=== PATIENT | male | born 1960 | race Caucasian/White ===

== ENCOUNTER 2016-07-04 09:44 | Inpatient (IN) | payer OTHER, MEDICAID ==
[~2016-07-04] VITALS: Ht 170.2 cm; Wt 68.9 kg
[~2016-07-04 09:44] MED LIST: ACIDOPHILUS1 CA1 PO; CALCIUM CARBONA PO; FERROUS SULFAT325 MG PO; FOLIC ACID5 MG PO; IMODIUM2 MG PO; MAPAP325 MG PO; MEGESTROL AC PO; PROTONIX40 MG PO; VITAMIN B-121000 MCG SL
[2016-07-04] MEDS ORDERED: NACL 0.9% 1,000 ML IV SCH (09:49)
[2016-07-04] MEDS ORDERED: ONDANSETRON 4 MG/2 ML VIAL IVP ONE (09:50)
--- NOTE | 2016-07-04 09:52 | NUR ---
Patient taken from ED lobby to XRAY by tech via personal wheelchair.
[2016-07-04 10:06] VITALS: BP 79/50
[2016-07-04] MEDS ORDERED: GOOD SENSE OMEP20 MG PO (10:11)
--- NOTE | 2016-07-04 10:44 | NUR ---
Patient transferred to bed 3 via wheelchair by tech, accompanied by family. RN evaluating patient at bedside.
--- NOTE | 2016-07-04 10:49 | NUR ---
Dr. Forbes evaluating patient at bedside.
--- NOTE | 2016-07-04 10:50 | NUR ---
PATIENT BIB EMS PRESENTS TO ED WITH C/O GEN WEAKNESS AND LETHARGY X1 DAY; DENIES N/V/D; SKIN IS PINK/WARM/DRY; AAOX4 WITH EVEN AND STEADY GAIT; LUNGS CLEAR BL; HR EVEN AND REGULAR; PT DENIES ANY FEVER, CP, SOB, OR COUGH AT THIS TIME; PATIENT STATES PAIN OF 0/10 AT THIS TIME; VSS; PATIENT POSITIONED FOR COMFORT; HOB ELEVATED; BEDRAILS UP X2; BED DOWN. ER MD MADE AWARE OF PT STATUS.
[2016-07-04] MEDS ORDERED: ALBUTEROL 0.083% 2.5 MG/3 ML NEBU INH ONE (10:55)
[2016-07-04] MEDS ORDERED: IPRATROPIUM 0.02% 0.5 MG/2.5 ML NEBU INH ONE (10:55)
[2016-07-04] MEDS ORDERED: NACL 0.9% 1,000 ML IV ONE (13:20)
[2016-07-04] MEDS: NACL 0.9% 1,000 ML IV SCH ×2 (13:22→21:03)
[2016-07-04] MEDS ORDERED: VANCOMYCIN PER PHARMACY MC PRN ×2 (13:25→13:55)
[2016-07-04] MEDS ORDERED: ALBUTEROL SULFATE/IPRATROPIU 3 ML SOL IH PRN (13:35)
[2016-07-04] MEDS ORDERED: cefTRIAXone 1,000 MG VIAL ONE (13:39)
--- NOTE | 2016-07-04 14:25 | NUR ---
Patient will be admitted to care of DR SHUKLA. Admited to ICU. Will go to room ICU5. Belongings list completed. Report to KATIA HOYOS.
[2016-07-04 14:40] VITALS: BP 117/67
--- NOTE | 2016-07-04 14:40 | NUR ---
ADMITTED PT FROM ER [facility], PT OPENS EYES BUT DOES NOT FOLLOW COMMANDS. NON VERBAL. BEDSIDE MONITOR SHOWS SR AT THIS TIME. PT ON O2 NC 2L/MIN, NO S/S OF RESPIRATORY DISTRESS NOTED. ABDOMEN SOFT, IV TO RIGHT FA #20 RUNNING NS , SITE INTACT AND PATENT. BUE AND BLE CONTRACTED. SKIN NON INTACT ( SEE WOUND ASSESSMENT), CALL LIGHT IN REACH, HOB ELEVATED 30 DEGREES WITH LOW BED POSITION, SIDE RAILS UP X2. NO FEVER.WILL CONTINUE TO MONITOR.
[2016-07-04] MEDS: VANCOMYCIN 500 MG in DEXTROSE 5% 100 ML IV SCH (15:32)
[2016-07-04 16:00] VITALS: BP 122/71
--- NOTE | 2016-07-04 16:05 | NUR ---
PT RESTING IN BED.NO S/S OF RESPIRATORY DISTRESS NOTED. WILL CONTINUE TO MONITOR.
--- NOTE | 2016-07-04 17:15 | NUR ---
PT'S MOTHER PRESENT AT BEDSIDE, QUESTIONS ANSWERED.
[2016-07-04 18:00] VITALS: BP 91/52
[2016-07-04] MEDS ORDERED: PIPERACILLIN/TAZOBACTAM 3.375 GM in DEXTROSE 5% 50 ML IV SCH (18:00)
--- NOTE | 2016-07-04 18:00 | NUR ---
DR. SHUKLA IN TO SEE PT. UPDATED PT'S CONDITION.
[2016-07-04] MEDS ORDERED: ONDANSETRON 4 MG/2 ML VIAL IVP PRN (18:10)
[2016-07-04] MEDS ORDERED: HYDROcodone/APAP 5/325 MG 1 TAB TAB PO PRN (18:10)
[2016-07-04] MEDS ORDERED: MORPHINE SULFATE 4 MG/ML SYR IVP PRN (18:10)
[2016-07-04] MEDS ORDERED: ALBUTEROL 0.083% 2.5 MG/3 ML NEBU IH PRN (18:10)
[2016-07-04] MEDS ORDERED: ACETAMINOPHEN 325 MG TAB PO PRN (18:15)
[2016-07-04] MEDS: PIPER/TAZO 3.375GM/D5W PREMIX 50 ML IV SCH ×2 (18:37→23:42)
[2016-07-04] MEDS ORDERED: ALBUTEROL SULFATE/IPRATROPIU 3 ML SOL IH SCH (19:00)
--- NOTE | 2016-07-04 19:05 | NUR ---
REPORT GIVEN TO MEME MONTALVO. BP 114/79. HR 73. NO SOB.
--- NOTE | 2016-07-04 19:40 | NUR ---
RECEIVED REPORT FROM SOHA MONTALVO. PATIENT IS AWAKE AND RESTING IN BED. NO SIGNS OF DISTRESS OR SHORTNESS OF BREATH NOTED. PATIENT IS RECEIVING OXYGEN THERAPY AT 2LPM VIA NASAL CANNULA. BREATH SOUNDS ARE CLEAR AND BOWEL SOUNDS ARE ACTIVE. THERE IS A #20 IN THE RIGHT FOREARM WRAPPED WITH KERLIX WRAP RECEIVING NORMAL SALINE AT 75 ML/HR. SITE IS DRY, INTACT, AND PATENT. THERE IS A SKIN TEAR NOTED ON THE LEFT CHEST, BLANCHABLE REDNESS ON THE RIGHT HIP, AND THE SMALLEST RIGHT TOE IS NON-BLANCHABLE. VITALS ARE WNL WITH NO COMPLAINTS OF PAIN OR DISCOMFORT AT THIS TIME. SAFETY MEASURES ENFORCED, WITH CALL LIGHT WITHIN REACH. WILL CONTINUE TO MONITOR.
[2016-07-04 20:00] VITALS: BP 141/52
--- NOTE | 2016-07-04 20:15 | NUR ---
RESPIRATORY THERAPIST GRICELDA AT BEDSIDE.
--- NOTE | 2016-07-04 21:00 | NUR ---
PERINEAL CARE PROVIDED. PATIENT REPOSITIONED FOR COMFORT. NO SIGNS OF SOB NOTED. HOB AT 30 DEGREES WITH BED IN LOW POSITION. CALL LIGHT WITHIN REACH. CONTINUE TO MONITOR PATIENT.
[2016-07-04 22:00] VITALS: BP 105/60
--- NOTE | 2016-07-04 22:16 | NUR ---
PATIENT SLEEPING IN BED. BREATHING IS EVEN AND UNLABORED. HOB AT 30 DEGREES WITH BED IN LOW POSITION. CALL LIGHT WITHIN REACH. CONTINUE TO MONITOR PATIENT.
--- NOTE | 2016-07-04 23:09 | NUR ---
PATIENT OFF UNIT FOR CT SCAN WITH CHARGE NURSE ROSALIE RN AND RAD TECHNICIANS.
--- NOTE | 2016-07-04 23:39 | NUR ---
PATIENT BACK FROM PROCEDURE AND IN UNIT. NO SIGNS OF DISTRESS OR SOB NOTED. CONTINUE TO MONITOR.
[2016-07-05] VITALS (12 sets, daily range): BP systolic 93–138; BP diastolic 47–92
--- NOTE | 2016-07-05 00:34 | NUR ---
PATIENT SLEEPING IN BED WITH NO SIGNS OF SOB OR DISTRESS NOTED. HOB AT 30 DEGREES WITH BED IN LOW POSITION. CALL LIGHT WITHIN REACH. CONTINUE TO MONITOR PATIENT.
[2016-07-05] MEDS: VANCOMYCIN 500 MG in DEXTROSE 5% 100 ML IV SCH ×2 (02:20→14:13)
--- NOTE | 2016-07-05 03:35 | NUR ---
PATIENT ASLEEP IN BED WITH NO SIGNS OF DISTRESS OR SHORTNESS OF BREATH. VITALS ARE STABLE. CONTINUE TO MONITOR.
--- NOTE | 2016-07-05 05:13 | NUR ---
INSPECTOR ADVANCED COMPOSITE AT BEDSIDE FOR SCHEDULED BLOOD DRAWS.
--- NOTE | 2016-07-05 05:38 | NUR ---
MORNING CARE RENDERED. BED BATH AND PERINEAL CARE PROVIDED. ORAL CARE RENDERED. PATIENT REPOSITIONED FOR TO OFFLOAD PRESSURE AREAS. HOB AT 30 DEGREES WITH BED IN LOW POSITION. CALL LIGHT WITHIN REACH. CONTINUE TO MONITOR PATIENT.
[2016-07-05] MEDS: PIPER/TAZO 3.375GM/D5W PREMIX 50 ML IV SCH ×4 (05:40→23:05)
--- NOTE | 2016-07-05 06:37 | NUR ---
PATIENT SLEEPING IN BED WITH NO S/S OF SOB OR DISCOMFORT NOTED. HOB AT 30 DEGREES WITH BED IN LOW POSITION. CALL LIGHT WITHIN REACH. CONTINUE TO MONITOR.
--- NOTE | 2016-07-05 07:03 | NUR ---
PATIENT IN STABLE CONDITION. ALL PATIENT'S NEEDS ATTENDED TO DURING SHIFT. ENDORSED CONTINUITY OF CARE TO SOHA MONTALVO.
--- NOTE | 2016-07-05 07:30 | NUR ---
RECEIVED REPORT FROM MEME MONTALVO. PT AWAKE AT THIS TIME, DOES NOT FOLLOW COMMANDS. ON O2 NC 2L/MIN, NO S/S OF RESPIRATORY DISTRESS NOTED. ABDOMEN SOFT WITH ACTIVE BOWEL SOUND. IV TO RIGHT FA #20 RUNNING NS AT 75 ML/HR, SITE INTACT AND PATENT. SKIN NON INTACT ( SEE WOUND ASSESSMENT). HOB ELEVATED 30 DEGREES WITH LOW BED POSITION, CALL LIGHT IN REACH. ORAL CARE GIVEN, WILL CONTINUE TO MONITOR.
[2016-07-05] MEDS: ENOXAPARIN 40 MG/0.4 ML SYR SUBQ SCH (08:52)
--- NOTE | 2016-07-05 10:00 | NUR ---
PT HAD MODERATE AMOUNT OF URINE OUTPUT, CLEANED PT. TURNED AND REPOSITIONED PT. WILL CONTINUE TO MONITOR.
[2016-07-05] MEDS ORDERED: PROBIOTIC SCREEN 1 EA MISC MC PRN (11:30)
[2016-07-05] MEDS ORDERED: LACTOBACILLUS RHAMNOSUS GG 1 EACH CAP PO SCH (12:00)
--- NOTE | 2016-07-05 12:30 | NUR ---
FEED PT, PT HAD 40% OF LUNCH TRAY.
--- NOTE | 2016-07-05 13:00 | NUR ---
DR. SHUKLA CALLED AND NOTIFIED OF LABS AND LOW MAG. GAVE ORDERS.
[2016-07-05] MEDS ORDERED: MAG SULF 2000 MG/WATER PREMIX 50 ML IV SCH (13:30)
[2016-07-05] MEDS ORDERED: POTASSIUM CHLORIDE 20% 40 MEQ/15 ML UDC PO SCH (13:30)
[2016-07-05] MEDS: NACL 0.9% 1,000 ML IV SCH (14:08)
--- NOTE | 2016-07-05 15:36 | NUR ---
URINE STAIN NOTED ON PAD, CLEANED PT. BED BATH GIVEN, GOWN CHANGED.
--- NOTE | 2016-07-05 16:30 | NUR ---
DR. SHUKLA IN TO SEE PT. MADE HIM AWARE PT HAS SB.
--- NOTE | 2016-07-05 16:47 | NUR ---
RIGHT HIP CULTURE DONE, SEND TO LAB.
--- NOTE | 2016-07-05 17:17 | NUR ---
PT'S FAMILY CALLED IN, UPDATED PT BP 105/58. HR 64. O2 SAT 100%.
--- NOTE | 2016-07-05 17:51 | NUR ---
DR. LUTHER CALLED RE: CONSULT. UPDATED ON PT'S CONDITION.
--- NOTE | 2016-07-05 18:04 | NUR ---
FEED PT DINNER, PT HAD 100% DINNER TRAY.
--- NOTE | 2016-07-05 18:58 | NUR ---
PT RESTING IN BED, NO S/S OF RESPIRATORY DISTRESS NOTED. HR 74, O2 SAT 96%, BP 112/68.
--- NOTE | 2016-07-05 19:27 | NUR ---
RECEIVED REPORT FROM SOHA MONTALVO. PATIENT IS SLEEPING IN BED. NO SIGNS OF DISTRESS OR SHORTNESS OF BREATH NOTED. BREATH SOUNDS ARE CLEAR UPON AUSCULTATION AND BOWEL SOUNDS ARE ACTIVE. PATIENT IS RECEIVING OXYGEN THERAPY AT 2LPM VIA NASAL CANNULA. THERE IS A #20 IN THE RIGHT FOREARM WRAPPED WITH KERLIX WRAP RECEIVING NORMAL SALINE AT 75 ML/HR. SITE IS DRY, INTACT, AND PATENT. THERE IS A SKIN TEAR NOTED ON THE LEFT CHEST COVERED WITH A COMPOSITE DRESSING, SMALL WOUND WITH BLANCHABLE REDNESS ON THE RIGHT HIP COVERED WITH A COMPOSITE DRESSING, AND THE SMALLEST RIGHT TOE IS NON-BLANCHABLE. VITALS ARE WNL WITH NO COMPLAINTS OF PAIN OR DISCOMFORT AT THIS TIME. SAFETY MEASURES ENFORCED, WITH CALL LIGHT WITHIN REACH. WILL CONTINUE TO MONITOR.
--- NOTE | 2016-07-05 20:26 | NUR ---
PERINEAL CARE PROVIDED. PATIENT REPOSITIONED FOR COMFORT. ORAL CARE RENDERED. NO SIGNS OF SOB OR DISTRESS NOTED. HOB AT 30 DEGREES WITH BED IN LOW POSITION. WILL CONTINUE TO MONITOR PATIENT.
--- NOTE | 2016-07-05 21:00 | NUR ---
RESPIRATORY THERAPIST ZACH AT BEDSIDE TO DO PULSE OX CHECK. PATIENT IS SATURATING AT 100% ON WITH NASAL CANNULA AT 2LPM. CONTINUE TO MONITOR PATIENT.
--- NOTE | 2016-07-05 21:23 | NUR ---
DR. LUTHER AT BEDSIDE. PROVIDED PATIENT'S STATUS WITH MD. NO NEW ORDERS GIVEN AT THIS TIME. CONTINUE TO MONITOR.
[2016-07-06] VITALS (9 sets, daily range): BP systolic 93–131; BP diastolic 32–69
--- NOTE | 2016-07-06 00:33 | NUR ---
PATIENT VOIDED MODERATE AMOUNT ON PAD. PERINEAL CARE PROVIDED. PATIENT REPOSITIONED FOR COMFORT. HOB AT 30 DEGREES WITH BED IN LOW POSITION. CONTINUE TO MONITOR PATIENT.
--- NOTE | 2016-07-06 02:30 | NUR ---
PATIENT SLEEPING IN BED. BREATHING IS EVEN AND UNLABORED. VITALS ARE STABLE. WILL CONTINUE TO MONITOR PATIENT.
[2016-07-06] MEDS: VANCOMYCIN 500 MG in DEXTROSE 5% 100 ML IV SCH (02:51)
--- NOTE | 2016-07-06 05:01 | NUR ---
MORNING CARE RENDERED. BED BATH PROVIDED. PATIENT'S GOWN AND LINENS CHANGED. REPOSITIONED TO OFFLOAD PRESSURE AREAS. ORAL CARE RENDERED. NO SIGNS OF SOB OR DISTRESS NOTED. HOB AT 30 DEGREES WITH BED IN LOW POSITION. CALL LIGHT WITHIN REACH. WILL CONTINUE TO MONITOR PATIENT.
[2016-07-06] MEDS: NACL 0.9% 1,000 ML IV SCH ×2 (05:11→21:00)
[2016-07-06] MEDS: PIPER/TAZO 3.375GM/D5W PREMIX 50 ML IV SCH ×3 (05:14→17:50)
--- NOTE | 2016-07-06 06:56 | NUR ---
PATIENT VOIDED MODERATE AMOUNT OF URINE ON PAD. PERINEAL CARE PROVIDED. PATIENT REPOSITIONED FOR COMFORT. ORAL CARE RENDERED. HOB AT 30 DEGREES WITH BED IN LOW POSITION. WILL CONTINUE TO MONITOR.
--- NOTE | 2016-07-06 07:11 | NUR ---
PATIENT SLEEPING IN BED AND IS STABLE. ALL PATIENT'S NEEDS ATTENDED TO DURING SHIFT. ENDORSED CONTINUITY OF CARE TO KIRIT MONTALVO.
--- NOTE | 2016-07-06 07:15 | NUR ---
RECEIVED PATIENT FROM KATIA VALENTINE. PT SEEN AT BEDSIDE. HAS HX OF DOWN SYNDROME, UNABLE TO FOLLOW COMMANDS; OPENS EYES SPONTANEOUSLY. PT ON 2L O2 VIA NC. NO S/S SOB AT THIS TIME. PT ON PROFESSOR OF ECONOMICS RUNNING SINUS RHYTHM. PT HAS A RIGHT FA 20G IV RUNNING IVF AT THIS TIME. BLOOD RETURN VISIBLE. RIGHT HIP WOUND COVERED WITH DRESSING. LEFT CHEST SKIN TEAR COVERED WITH DRESSING. RIGHT FOOT ABRASION SISI. PT HAD X1 URINE INCONTINENCE. PT CLEANED, TURNED AND REPOSITIONED. SAFETY MEASURES CHECKED, CALL LIGHT LEFT A BEDSIDE. WILL CONTINUE TO MONITOR.
--- NOTE | 2016-07-06 07:45 | NUR ---
ASSISTED PATIENT WITH FEEDING. PATIENT ATE 100% OF MEAL.
--- NOTE | 2016-07-06 07:48 | NUR ---
PATIENT HAS BEEN SCREENED AND CATEGORIZED HIGH NUTRITION RISK. PATIENT WILL BE SEEN WITHIN 1-2 DAYS OF ADMISSION. 07/05/16-07/06/[address]
[2016-07-06] MEDS: ENOXAPARIN 40 MG/0.4 ML SYR SUBQ SCH (08:25)
--- NOTE | 2016-07-06 08:25 | NUR ---
RECEIVED CALL FROM PATIENT'S MOTHER. UPDATED HER ON PATIENT CONDITION.
--- NOTE | 2016-07-06 08:25 | NUR ---
ROUTINE MEDICATION GIVEN WITH EDUCATION. PATIENT UNABLE TO VERBALIZE UNDERSTANDING. WILL CONTINUE TO MONITOR.
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
[2016-07-06] MEDS ORDERED: LACTOBACILLUS RHAMNOSUS GG 1 EACH CAP PO SCH (09:00)
--- NOTE | 2016-07-06 10:00 | NUR ---
BACTROBAN AND CHLORHEXIDINE TREATMENT STARTED ON PATIENT FOR POSITIVE MRSA NARES.
[2016-07-06] MEDS: MUPIROCIN 2% OINT 22 GM TUBE TP SCH (10:10)
[2016-07-06] MEDS: CHLORHEXADINE GLUC 2% CLOTH TP SCH (10:11)
--- NOTE | 2016-07-06 10:15 | NUR ---
PT HAD URINE INCONTINENCE. CLEANED, TURNED AND REPOSITIONED. WILL CONTINUE TO MONITOR.
--- NOTE | 2016-07-06 11:32 | NUR ---
ROUTINE ZOSYN ADMINISTERED WITH EDUCATION. PT UNABLE TO VERBALIZE UNDERSTANDING. VITAL SIGNS STABLE. WILL CONTINUE TO MONITOR.
--- NOTE | 2016-07-06 11:32 | NUR ---
07/06/16 RD INITIAL ASSESSMENT COMPLETED PLEASE REFER TO NUTRITION ASSESSMENT UNDER CARE ACTIVITY FOR ESTIMATED NUTRITIONAL NEEDS. RD RECOMMENDATIONS: 1. CONTINUE PUREE DIET WITH NECTAR THICKENED LIQUIDS 2. CONTINUE TO ASSIST PT IN FEEDINGS AND ENCOURAGE ADEQUATE PO INTAKE 3. RD WILL F/U 3-5 DAYS; MODERATE RISK. LUIS A EMERY RD
--- NOTE | 2016-07-06 11:47 | NUR ---
TINWARE LITHOGRAPH PRESS OPERATORDOMINIC, AT BEDSIDE.
--- NOTE | 2016-07-06 11:50 | NUR ---
WOUND CARE EVALUATION NOTES: REASON FOR EVALUATION: CECILIA SCORE 14 AND OPEN WOUND ON THE CHEST COMPLETE SKIN ASSESSMENT DONE ON THIS 55 Y/O MALE PATIENT FROM [facility] TO [facility], WITH INITIAL DIAGNOSIS OF HYPOTENSION. PAST MEDICAL HISTORY INCLUDE DOWN SYNDROME AND CHRONIC LUNG DISEASE. ALL ABOVE INFORMATION WAS OBTAINED FROM THE ADMISSION H&P. LABS ARE WBC 3.2, H/H 11.7/36.0, GLUCOSE 95, ALBUMIN 3.2, PT/INR 10.6/1.1 AND PTT 26.1. CURRENT MEDS INCLUDE VANCOMYCIN, ENOXAPARIN, MORPHINE, NORCO AND ZOSYN. PATIENT IS AWAKE, NON VERBAL, MOAN AND GROANS AT TIMES. ON 02 PER NASAL CANNULA. URINE AND BOWEL INCONTINENT. SKIN WARM TO TOUCH WNL, TOENAILS SLIGHTLY THICKENED, NO EDEMA, FINE HAIR GROWTH AND +3 BILATERAL PEDAL PULSES. NEEDS MAX ASSISTANCE IN TURNING. INITIAL PLAN OF CARE AND PRESSURE PREVENTIVE MEASURES DISCUSSED, UNABLE TO VERBALIZE UNDERSTANDING. WILL REINFORCE TEACHING. NO FAMILY MEMBER PRESENT AT THIS TIME. WILL FOLLOW UP. INTEGUMENTARY: RIGHT TROCHANTER - RESURFACING III VS ABSCESS - 100% PALE RED. PW RED. RIGHT LATERAL FOOT - ST II - RD BROWN SCAB BILATERAL HEELS - BLANCHABLE REDNESS SACRALCOCCYX TO PERIAREA - RED AND MOIST DUE TO URINE AND BOWEL INCONTINENCE RECOMMENDATIONS: -CLEANSE SACRALCOCCYX TO PERIAREA WITH MILD SOAP AND WATER, PAT DRY, APPLY HYDRAGUARD BIDWC AND PRN WITH SOILING. LEAVE OPEN TO AIR -CLEANSE RIGHT TROCHANTER WITH NS AND GAUZE, PAT DRY, APPLY SILVER ALGINATE, COVER WITH GAUZE AND COMPOSITE DRESSING Q DAY AND PRN WITH SOILING/DISPLACEMENT -PAINT RIGHT LATERAL FOOT AND BILATERAL HEELS WITH SKIN PREP WIPES BIDWC AND LEAVE OPEN TO AIR -TURN AND REPOSITION PATIENT Q2H TO LEFT SIDE AND SUPINE ONLY TO OFFLOAD RIGHT HIP -ASSESS AND MONITOR SKIN CONDITION DURING POSITION CHANGE, PLEASE PAY PARTICULAR ATTENTION TO SACRALCOCCYX, ELBOWS AND HEELS -OFFLOAD BILATERAL HEELS BY PLACING PILLOWS UNDER CALVES AT ALL TIMES, UNLESS OTHERWISE CONTRAINDICATED -KEEP SKIN CLEAN AND DRY AT ALL TIMES. RECOMMENDATIONS DISCUSSED WITH PRIMARY RN. WILL FOLLOW UP PATIENT Q 7 DAYS AND PRN. PLEASE CONTACT C FOR ANY CONCERNS, QUESTIONS AND ANY CHANGES IN SKIN CONDITION.
--- NOTE | 2016-07-06 11:55 | NUR ---
WOUND CARE NOTES: ABLE TO SPEAK TO PATIENT'S MOTHER JOSE ALBERTO REGARDING INITIAL PLAN OF CARE AND PRESSURE PREVENTIVE MEASURES. I WAS TRYING TO GET MORE INFORMATION REGARDING RIGHT TROCHANTER WOUND AND SHE TOLD ME TO JUST CALL HER DAUGHTER ALEC WOODS (A NURSE) BECAUSE SHE CAN GIVE ME DETAILED INFORMATION. I CALLED ALEC WOODS AT [phone]. ALEC STATED THAT THE PATIENT LIVED IN A NURSING FACILITY AT [place] FOR 50 YEARS AND WAS TRANSFERRED TO A HOSPITAL AFTER A FALL WHICH AFFECTED THE RIGHT HIP AND AN INFECTION ON THE RIGHT FOOT. THE PATIENT HAD SWELLING ON THE HIP AND WAS PUT ON ANTIBIOTICS FOR 2 WEEKS IN THE HOSPITAL AND WAS TRANSFERRED TO A BOARD AND CARE WITH ANOTHER 3 WEEKS OF ANTIBIOTICS. DURING THIS TIME THE PATIENT DEVELOPED A BLOOD BLISTER ON THE SAID HIP AND WAS CHECKED BY HIS PCP, WHICH THE LATTER SAID IT WAS NOT A PRESSURE ULCER BUT BECAUSE OF THE ABSCESS WHICH WAS COVERED BY THE ANTIBIOTIC. THE PCP ALSO RECOMMENDED TO THE FACILITY TO DO DRY DRESSING FOR WOUND CARE. SHE ALSO STATED THAT THE WOUND WAS POSITIVE FOR VRE THAT IS WHY THE PATIENT WAS ON ANTIBIOTIC.
[2016-07-06] MEDS ORDERED: HYDRAGUARD CREAM TP PRN (12:15)
[2016-07-06] MEDS ORDERED: ALGINATE DRESSING TP PRN (12:15)
--- NOTE | 2016-07-06 12:20 | NUR ---
JOSE ALBERTO PERSAUD, PT'S MOTHER, VISITING. INFORMED HER OF MRSA RESULTS ON NARES AND PATIENT'S CURRENT CONDITION. EDUCATION GIVEN. PT SIGNED MRSA ACKNOWLEDGEMENT FORM.
[2016-07-06] MEDS: VANCOMYCIN HCL 750 MG in DEXTROSE 5% 250 ML IV SCH (12:37)
--- NOTE | 2016-07-06 12:38 | NUR ---
ROUTINE VANCO ADMINISTERED WITH EDUCATION. PATIENT UNABLE TO VERBALIZE UNDERSTANDING. WILL CONTINUE TO MONITOR.
[2016-07-06] MEDS: HYDRAGUARD CREAM TP SCH (13:27)
--- NOTE | 2016-07-06 14:00 | NUR ---
PT TURNED AND REPOSITIONED FOR COMFORT. PT HAD URINE INCONTINENCE. PT CLEANED. WILL CONTINUE TO MONITOR.
--- NOTE | 2016-07-06 16:00 | NUR ---
PT TURNED AND REPOSITIONED FOR COMFORT. PT HAD URINE INCONTINENCE. PT CLEANED. WILL CONTINUE TO MONITOR.
--- NOTE | 2016-07-06 18:00 | NUR ---
ROUTINE MED GIVEN TO PATIENT. TOLERATED WELL. PT TURNED AND REPOSITIONED FOR COMFORT. PT HAD URINE INCONTINENCE. PT CLEANED. WILL CONTINUE TO MONITOR.
--- NOTE | 2016-07-06 19:10 | NUR ---
REPORT GIVEN TO KATIA GONCALVES.
--- NOTE | 2016-07-06 19:10 | NUR ---
RECEIVED PT TRANSFERRED FROM ICU, RECEIVED REPORT FROM ICU NURSE AT BEDSIDE, PT IS AAOX1, NOT ABLE TO FOLLOW COMMAND AND MAKE NEEDS KNOWN, APHASIC, FLACC 0. NO SOB/DISTRESS NOTED, BREATHING EVEN AND UNLABORED, CLEAR LUNG SOUNDS, ON RA. ON TELE MONITOR WITH SB. SOFT ABD WITH POSITIVE BOWEL SOUNDS TO 4 QUADRANTS. AFEBRILE, SKIN IS WARM AND DRY IN TOUCH, OPEN WOUND TO RIGHT HIP, SKIN TEAR TO LEFT CHEST, COVERED WITH DRESSING, C/D/I. IV SITE TO RIGHT FOREARM 20GA RUNNING WITH NS. UNABLE TO MOVE ALL EXTREMITIES, BED BOUNDS, INCONTINENT WITH B&B'S, REQUIRES TOTAL CARE . VSS. SAFETY MEASURES MAINTAINED, WILL CONTINUE TO MONITOR.
--- NOTE | 2016-07-06 19:48 | NUR ---
NO DISTRESS/SOB/WHEEZING NOTED AT THIS TIME. NO INDICATION FOR HHN PRN TX.
--- NOTE | 2016-07-06 21:30 | NUR ---
SCHEDULED MEDICATION GIVEN, NO CHANGE OF CONDITION AT THIS TIME.
[2016-07-07] VITALS: BP 102/47
--- NOTE | 2016-07-07 | NUR ---
NO CHANGE OF CONDITION AT THIS TIME, POSITION CHANGED FOR OFF LOAD PRESSURE, VSS.
[2016-07-07] MEDS: PIPER/TAZO 3.375GM/D5W PREMIX 50 ML IV SCH ×4 (00:05→17:08)
[2016-07-07] MEDS: VANCOMYCIN HCL 750 MG in DEXTROSE 5% 250 ML IV SCH ×2 (00:28→13:14)
[2016-07-07] MEDS: HYDRAGUARD CREAM TP SCH ×2 (00:29→13:15)
[2016-07-07 04:00] VITALS: BP 110/58
--- NOTE | 2016-07-07 04:00 | NUR ---
NO CHANGE OF CONDITION AT THIS TIME, POSITION CHANGED FOR OFF LOAD PRESSURE, VSS.
--- NOTE | 2016-07-07 07:12 | NUR ---
REPORT GIVEN TO MORNING SHIFT NURSE FOR CONTINUE OF CARE, PT IS IN STABLE CONDITION AT THIS TIME.
--- NOTE | 2016-07-07 07:30 | NUR ---
RECEIVED PATIENT FROM KATIA GONCALVES. PT OPENS EYES SPONTANEOUSLY BUT UNABLE TO FOLLOW COMMANDS. NO S/S SOB AT THIS TIME. ON INSERTING OPERATOR RUNNING SINUS RHYTHM. IV TO RIGHT FA 20G RUNNING IVF WITH POSITIVE BLOOD RETURN . SKIN NON INTACT ( SEE WOUND ASSESSMENT ) TURNED AND REPOSITIONED PT. SAFETY MEASURES IN PLACE, CALL LIGHT AT BEDSIDE. WILL CONTINUE TO MONITOR.
[2016-07-07 08:00] VITALS: BP 135/72
[2016-07-07] MEDS: MUPIROCIN 2% OINT 22 GM TUBE TP SCH (09:00)
--- NOTE | 2016-07-07 09:10 | NUR ---
PT HAD BM, CLEANED PT .
[2016-07-07] MEDS: ENOXAPARIN 40 MG/0.4 ML SYR SUBQ SCH (09:48)
[2016-07-07] MEDS: CHLORHEXADINE GLUC 2% CLOTH TP SCH (09:52)
[2016-07-07 12:00] VITALS: BP 115/61
--- NOTE | 2016-07-07 12:10 | NUR ---
SERVED PT LUNCH TRAY, FEED PT.
--- NOTE | 2016-07-07 14:21 | NUR ---
DR. SHUKLA IN TO SEE PT, WILL FOLLOW UP.
[2016-07-07 16:00] VITALS: BP 109/70
--- NOTE | 2016-07-07 16:05 | NUR ---
PT RESTING IN BED. NO S/S OF RESPIRATORY DISTRESS NOTED. ORAL CARE GIVEN. TURNED AND REPOSITIONED PT. WILL CONTINUE TO MONITOR.
--- NOTE | 2016-07-07 18:10 | NUR ---
PT SLEEPING AT THIS TIME. NO S/S OF RESPIRATORY DISTRESS NOTED. WILL CONTINUE TO MONITOR.
--- NOTE | 2016-07-07 19:10 | NUR ---
PT RESTING IN BED, NO S/S OF RESPIRATORY DISTRESS NOTED. REPORT GIVEN TO PEPITO.
--- NOTE | 2016-07-07 19:30 | NUR ---
RECEIVED REPORT FROM DAY RN AT BEDSIDE, PATIENT IS SLEEPING, EASILY AWOKEN, PATIENT IS AAOX1 NON VERBAL, IV TO RFA PATENT AND INTACT, NOTED PATIENT HAS WOUND TO RIGHT HIP AND SKIN TEAR TO LEFT UPPER CHEST. ON CONTACT ISOLATION, PRECAUTIONS IN PLACE AND SIGNS POSTED. DISCUSSED PLAN OF CARE WITH PATIENT, PATIENT UNABLE TO COMPREHEND, SAFETY MEASURES CHECKED, CALL LIGHT WITHIN REACH, WILL CONTINUE TO MONITOR.
[2016-07-07 20:00] VITALS: BP 105/60
--- NOTE | 2016-07-07 21:30 | NUR ---
PATIENT SLEEPING COMFORTABLE, NO SOB OR SIGN OF DISTRESS, CALL LIGHT WITHIN REACH. WILL CONTINUE TO MONITOR.
[2016-07-07] MEDS ORDERED: NAFCILLIN 2,000 MG VIAL IV ONE (22:35)
[2016-07-08] VITALS: BP 109/62
--- NOTE | 2016-07-08 00:30 | NUR ---
VITAL SIGNS STABLE, PATIENT RESTING IN BED AWAKE, NO SOB OR SIGN OF DISTRESS AT THIS TIME, CALL LIGHT WITHIN REACH. WILL CONTINUE TO MONITOR.
[2016-07-08] MEDS: NAFCILLIN 2,000 MG in DEXTROSE 5% 100 ML IV SCH ×4 (00:39→18:00)
[2016-07-08] MEDS: HYDRAGUARD CREAM TP SCH ×2 (01:12→12:35)
--- NOTE | 2016-07-08 02:15 | NUR ---
PATIENT SLEEPING, NO SOB OR SIGN OF DISTRESS AT THIS TIME, CALL LIGHT WITHIN REACH. WILL CONTINUE TO MONITORL
[2016-07-08 04:00] VITALS: BP 99/59
--- NOTE | 2016-07-08 04:10 | NUR ---
VITAL SIGNS STABLE, NO SOB OR SIGN OF DISTRESS AT THIS TIME, CALL LIGHT WITHIN REACH. WILL CONTINUE TO MONITOR.
[2016-07-08] MEDS ORDERED: NAFCILLIN 2,000 MG VIAL IV ONE (04:52)
--- NOTE | 2016-07-08 07:34 | NUR ---
ENDORSED PATIENT TO DAY RN AT BEDSIDE, PATIENT IN STABLE CONDITION
--- NOTE | 2016-07-08 07:40 | NUR ---
RECEIVED PT SLEEPING IN BED COMFORTABLY AND WAS IN NO DISTRESS. PT ROUSABLE BUT UNABLE TO KNOW PT'S ORIENTATION PT WAS NOT RESPONDING VERBALLY. SHIFT ASSESSMENT DONE AND CHARTED. PLAN OF CARE, MEDS, TREATMENTS AND SAFETY DISCUSSED WITH PT WITH NO SIGN OF UNDERSTANDING. WILL CONTINUE TO MONITOR PT.
[2016-07-08 08:00] VITALS: BP 109/69
--- NOTE | 2016-07-08 09:00 | NUR ---
PT TOOK DIET AND FLUIDS WHEN FED. PT ALSO TOOK SCHEDULED PO MEDS WITH NO DIFFICULTY. PT TURNED AND REPOSITIONED AFTER AM CARE WAS DONE. WILL CONTINUE TO MONITOR PT.
[2016-07-08] MEDS: ENOXAPARIN 40 MG/0.4 ML SYR SUBQ SCH (09:16)
[2016-07-08] MEDS: CHLORHEXADINE GLUC 2% CLOTH TP SCH (09:18)
[2016-07-08] MEDS: MUPIROCIN 2% OINT 22 GM TUBE TP SCH (09:24)
[2016-07-08 12:00] VITALS: BP 115/87
[2016-07-08] MEDS ORDERED: ALGINATE DRESSING MC SCH (13:00)
--- NOTE | 2016-07-08 13:40 | NUR ---
PT'S SISTER PHONED ASKING IF PT WILL BE DISCHARGED TODAY BUT NO DISCHARGE ORDER NOTED AT THIS TIME. SHE ALSO WANTED PT TO HAVE P.T. FOR STRENGTHENING. DR. SHUKLA WAS IN AND NOTIFIED OF PT'S SISTER CONCERN. LEFT PRESCRIPTION AND DISCHARGE ORDER.
[2016-07-08] MEDS ORDERED: DYNAPEN PO (13:51)
--- NOTE | 2016-07-08 15:20 | NUR ---
PHONED ASTER OF [facility] [phone] AND LEFT A MESSAGE SHE WAS NOT AVAILABLE.
--- NOTE | 2016-07-08 15:25 | NUR ---
PHONED PT'S MOTHER, JOSE ALBERTO FREEMANHAM RE PT TRANSFER BACK TO [facility].
[2016-07-08 16:00] VITALS: BP 121/65
--- NOTE | 2016-07-08 16:15 | NUR ---
ASTER FROM [facility] AND TOLD ME THAT SHE IS NOT THE ONE TO CONTACT RE PT'S TRANSFER BACK TO [facility]. SHE STATED THAT THEIR RN MIGUEL HAS TO DECIDE ON WHETHER PT IS WELL ENOUGH TO RETURN BACK TO THE HOME. COOK PICKLED MEAT MADE AWARE OF SAME AND PHONED MIGUEL [phone] BUT WAS NOT ANSWERING THE PHONE. COOK [employer] ALSO TRIED TO GET HOLD OF ASTER AND LEFT A MESSAGE. NO RESPONSE RECEIVED AT THIS TIME FROM [facility].
--- NOTE | 2016-07-08 17:41 | NUR ---
Spoke to Carisa hameed Rn from the [facility] and gave information regarding the condition of the patient. She said she will arrange transportation for the patient today or tonight.
--- NOTE | 2016-07-08 18:50 | NUR ---
PRESCRIPTION AND DISCHARGE INSTRUCTIONS GIVEN TO RAMONE YANEZ OF [facility] AND VERBALIZED UNDERSTANDING. SALINE LOCK REMOVED WITH OLD CATH TIP INTACT AND PRESSURE DRESSINGS APPLIED TO SITE. TELE BOX REMOVED AND RETURNED TO RESEARCH AND DEVELOPMENT MANAGER.PT DISCHARGED PER W/C ACCOMPANIED BY RAMONE YANEZ AND [employer] VIA PRIVATE VEHICLE IN A STABLE CONDITION.
== END 2016-07-08 18:55 | disposition home or self-care (01) | DRG 871 ==
LOC: MED 09:44 → MIC 13:37 → MTU 07-06 19:31
PROVIDERS: ADMIT Internal Medicine Pulmonary Disease; ATTEND Internal Medicine Pulmonary Disease
DX: A41.9 Sepsis, unspecified organism (principal); J96.01 Acute respiratory failure with hypoxia; M86.451 Chronic osteomyelitis with draining sinus, right femur; J44.1 Chronic obstructive pulmonary disease with (acute) exacerbation; K21.9 Gastro-esophageal reflux disease without esophagitis; L89.159 Pressure ulcer of sacral region, unspecified stage; N21.0 Calculus in bladder; I10 Essential (primary) hypertension; Q90.9 Down syndrome, unspecified; Z88.8 Allergy status to other drugs, medicaments and biological substances; Z79.2 Long term (current) use of antibiotics; Z79.899 Other long term (current) drug therapy; Z86.19 Personal history of other infectious and parasitic diseases